=== PATIENT | male | born 1970 | race Caucasian/White ===

== ENCOUNTER 2016-06-22 09:51 | Observation (INO) | payer OTHER ==
--- NOTE | 2016-06-22 10:47 | Diag Imaging Result Document ---
PROCEDURE NAME: CHEST-2 VIEWS - 06/22/2016 CHEST X-RAY 2 VIEWS, 06/22/2016: COMPARISON: 06/07/2016. FINDINGS: There is suspicion for a small pneumothorax at the right apex measuring about 1.3 cm, about 10%. Otherwise there is significant improvement in the diffuse bilateral pulmonary vascular congestion and infiltrates. Heart size remains normal. There are trace pleural effusions. IMPRESSION: 1. Significant improvement in the pulmonary edema and vascular congestion. 2. Possible trace pneumothorax on the right. Consider a chest CT.
[2016-06-22 14:31] LABS: HEMATOCRIT 20.1 % (42.0-52.0); HEMOGLOBIN 7.3 g/dL (14.0-18.0)
[2016-06-22 14:33] LABS: PLT 6 X1000 (130-400)
[2016-06-22] MEDS ORDERED: LASIX PO PRN (14:49)
[2016-06-22] MEDS: NORCO-10 PO PRN (15:14)
[2016-06-22] MEDS: CLINIMIX E 4.25%-5% SOLUTION 1,000 ML IV SCH (15:14)
[2016-06-22] MEDS ORDERED: NS 500 ML ONE (16:09)
[2016-06-22] MEDS ORDERED: BENADRYL PO ONE (18:22)
[2016-06-22] MEDS ORDERED: TYLENOL PO ONE (18:22)
[2016-06-22] MEDS: MORPHINE IV PRN (18:39)
[2016-06-22 19:38] LABS: URINE SOURCE VOIDED
[2016-06-22 19:43] LABS: BILIRUBIN URINE 1+ (NEGATIVE); BLOOD URINE 4+ (NEGATIVE); CLARITY SL. CLOUDY (CLEAR); COLOR BROWN; GLUCOSE URINE NEGATIVE (NEGATIVE); LEUKOCYTES URINE TRACE (NEGATIVE); NITRITE URINE NEGATIVE (NEGATIVE); PH URINE 6.5; PROTEIN URINE 1+(30 mg/dL) mg/dL (NEGATIVE); UROBILINOGEN URINE NORMAL
[2016-06-22 19:53] LABS: URINE CULTURE PL NEEDED? YES; URINE EPITHELIAL CELLS <10 /HPF (<10); URINE RBC 20-40 /HPF (<10); URINE WBC <10 /HPF (<10)
[2016-06-22] MEDS ORDERED: SOLU-MEDROL IV ONE (20:17)
[2016-06-22] MEDS ORDERED: MOTRIN PO ONE (20:19)
[2016-06-22] MEDS ORDERED: NS 500 ML IV ONE (20:20)
[2016-06-22] MEDS ORDERED: TYLENOL ONE (21:03)
[2016-06-22] MEDS ORDERED: BENADRYL ONE (21:03)
[2016-06-22] MEDS: MS CONTIN PO SCH (21:21)
[2016-06-23] MEDS: MORPHINE IV PRN ×5 (00:11→18:02)
[2016-06-23 06:54] LABS: HEMATOCRIT 19.3 % (42.0-52.0); HEMOGLOBIN 6.8 g/dL (14.0-18.0); IMM GRAN# 0.01 X1000 (0.0-0.04); IMM GRAN% 0.6 % (0.0-0.5); LYMPH# 0.99 X1000 (1.2-3.4); LYMPH% 56.6 % (20.5-51.1); MANUAL DIFF NEEDED? YES; MCH 31.9 PG (27-31); MCHC 35.2 g/dL (33-37); MCV 90.6 FL (81-99); MONO# 0.64 X1000 (0.11-0.59); MONO% 36.6 % (1.7-9.3); NEUT% 6.2 % (42.2-75.2); PLT 40 X1000 (130-400); RBC 2.13 XMIL (4.7-6.1)
[2016-06-23] MEDS ORDERED: PROTONIX PO SCH (07:15)
[2016-06-23] MEDS ORDERED: TYLENOL PO ONE (07:29)
[2016-06-23] MEDS ORDERED: BENADRYL PO ONE (07:29)
[2016-06-23 07:40] LABS: BANDS 1 % (0-1); LYMPHS 57 % (21-51); MONO 26 % (1-9); NRBC 3 % (0-0)
[2016-06-23 07:41] LABS: MPV 12.9 FL (7.4-10.4)
--- NOTE | 2016-06-23 07:45 | Diag Imaging Result Document ---
PROCEDURE NAME: CHEST-2 VIEWS - 06/23/2016 CHEST X-RAY, 2 VIEWS: COMPARISON: 06/22/2016. FINDINGS: There is increase in the right basilar pleural effusion. There is slight worsening in the bibasilar infiltrates mostly in the lower lobes. Heart size remains stable. There is decrease in the tiny right pneumothorax which now measures about 1 cm. IMPRESSION: 1. Decrease in the right-sided pneumothorax. 2. Otherwise overall worsening in aeration of the lungs.
[2016-06-23] MEDS: CLINIMIX E 4.25%-5% SOLUTION 1,000 ML IV SCH (09:10)
[2016-06-23] MEDS ORDERED: GRANIX SUBQ ONE (09:15)
[2016-06-23] MEDS ORDERED: NEUPOGEN SUBQ ONE (09:30)
[2016-06-23] MEDS ORDERED: INVANZ 1 GM/NS 50 ML IV ONE (09:30)
[2016-06-23] MEDS: MS CONTIN PO SCH (09:49)
[2016-06-23] MEDS ORDERED: DIFLUCAN 200 MG/NS 100 ML IV ONE (10:50)
[2016-06-23] MEDS: NORCO-10 PO PRN (12:20)
[2016-06-23 16:16] VITALS: BP 130/80
[2016-06-25] MEDS ORDERED: DURAGESIC 25 MICROGM/HR PATCH TD SCH (15:00)
== END 2016-06-23 19:57 | disposition home or self-care (01) ==
LOC: RAD 09:51 → P.DIRADM 11:01 → P.MEDSURG 12:42 → UNDODISOB 06-23 18:35
PROVIDERS: ADMIT Internal Medicine Hematology & Oncology; ATTEND Internal Medicine Hematology & Oncology
DX: C25.9 Malignant neoplasm of pancreas, unspecified (principal); D63.0 Anemia in neoplastic disease; D69.6 Thrombocytopenia, unspecified; J93.9 Pneumothorax, unspecified; Z79.899 Other long term (current) drug therapy
CPT/HCPCS: 36415; 71020; 81001; 85014; 85018; 85025; 85049; 86850; 86900; 86901; 86920; 87040; 87088; J1335; J1447; J1450; J2270; J2920; J7040; P9016; P9035

== ENCOUNTER 2016-06-26 21:50 | Inpatient (IN) | payer OTHER ==
[2016-06-26 22:52] LABS: AGAP 10; ALBUMIN 1.8 g/dL (3.5-5.0); ALKALINE PHOSPHATASE 110 U/L (32-122); BUN 14 mg/dL (8-22); CALCIUM 8.1 mg/dL (8.8-10.2); CHLORIDE 98 mmol/L (98-107); COSMO 272; GOT 82 U/L (10-34); GPT 22 U/L (10-44); HEMATOCRIT 27.8 % (42.0-52.0); HEMOGLOBIN 9.9 g/dL (14.0-18.0); MANUAL DIFF NEEDED? YES; MCH 32.4 PG (27-31); MCHC 35.6 g/dL (33-37); MCV 90.8 FL (81-99); PLT 41 X1000 (130-400); POTASSIUM 3.6 mmol/L (3.5-5.1); RBC 3.06 XMIL (4.7-6.1); SODIUM 136 mmol/L (136-145); TCO2 28 mmol/L (25-35); TOTAL BILIRUBIN 4.03 mg/dL (0.20-1.00); TOTAL PROTEIN 6.7 g/dL (6.3-8.3)
[2016-06-26 23:02] LABS: BANDS 10 % (0-1); LYMPHS 10 % (21-51); MONO 6 % (1-9); NRBC 5 % (0-0)
--- NOTE | 2016-06-26 23:06 | PROVIDER DOCUMENTATION ---
HPI-Abdominal Pain/GI Problem - General Chief Complaint: GI Bleed Stated Complaint: rectal bleeding Time Seen by Provider: 06/26/16 22:40 Source: patient, family Allergies/Adverse Reactions: Patient Allergies Allergy/AdvReac Type Severity Reaction Status Date / Time No Known Allergies Allergy Verified 06/26/16 22:29 Home Medications: Home Medication List Medication Instructions Recorded Confirmed Last Taken Type Morphine E.r. [Ms Contin] 30 mg PO BID 03/17/16 06/26/16 06/26/16 History Fentanyl 1 each TD Q72H #8 patch.td72 06/10/16 06/26/16 06/26/16 Rx Pantoprazole [Protonix] 40 mg PO DAILY 06/22/16 06/26/16 06/26/16 History Fluconazole [Diflucan] 150 mg PO DAILY #21 tablet 07/02/16 Unknown Rx Oxycodone HCl/Acetaminophen 1 each PO Q3H PRN PRN #60 tablet 07/02/16 Unknown Rx [Percocet 7.5-325 mg Tablet] Sulfamethoxazole/Tmp D.s. [Septra 1 each PO BID #28 tablet 07/02/16 Unknown Rx Ds] - History of Present Illness-ABD Nature of Presenting Problems: Pt is a 46 yom who presents to ER via EMS with CC of hematochezia, increased diarrhea, and worsening abdominal cramping. Pt has hx of pancreatic cancer that has metastisized to his liver. Pt's mother reports that pt usually ends up like this after receiving chemotherapy, and reports that the last time he went to chemo was x3 weeks ago, and is scheduled for chemo on Tuesday. Pt reports that the last time he ate was approximately x8 days ago. On exam, pt is moderately- severely fatigued, mildly jaundice, bilateral lower extremity pitting edema, calf tenderness, and generalized abdominal tenderness on palpation. Pt reports that his plan is to continue chemotherapy for as long as he can handle it, but should something happen in the ER, he is DNR. Mother was at bedside and confirmed. Abdominal Pain Onset Location: reports: generalized abdomen Pain Radiation: reports: no radiation Quality of Pain: reports: aching Severity in ED: reports: moderate Onset/Duration: reports: unsure Timing: reports: still present Associated Symptoms: reports: diarrhea, fatigue, loss of appetite, muscle aches , nausea, weakness, trouble walking. denies: anxiety, arm pain, back/neck pain , chest pain, constipation, cough, diaphoresis, dizziness, EENT symptoms, fever/ chills, genitourinary problems, headaches, heartburn, joint pain, malaise, sinus congestion/drainage, rash, seizure, shortness of breath, sensory/motor loss, pain with inspiration, swelling/mass in abdomen, syncope, vomiting Last BM: this evening Dark Stools Present?: reports: bright red blood Rectal Bleeding: reports: blood mixed with stool Emesis Description: reports: none Review of Systems - Adult - REVIEW OF SYSTEMS - ADULT Constitutional: reports: fatique, weight loss. denies: chills, fever, night sweats, weight gain Eyes: reports: no symptoms reported Ears, Nose, Mouth & Throat: reports: no symptoms reported Cardiovascular: denies: chest pain, edema, heart murmur, irregular heart rate, orthopnea, palpitations, poor circulation, PND, syncope Respiratory: denies: chronic cough, cough, dyspnea on exertion, excessive sputum production, hemoptysis, pleurisy, shortness of breath, wheezing Gastrointestinal: reports: abdominal pain, diarrhea, nausea, poor appetite, rectal bleeding. denies: hematemesis, constipation, difficulty swallowing, frequent heartburn, vomiting Genitourinary: reports: no symptoms reported Musculoskeletal: reports: no symptoms reported Integumentary: reports: hair loss, other (jaundice). denies: hives, itching, mole changes, nail changes, rash, skin sores/ulcer, skin thickening Neurological: reports: no symptoms reported Psychiatric: reports: no symptoms reported Endocrine: reports: no symptoms reported Hematologic/Lymphatic: reports: no symptoms reported Allergic/Immunologic: reports: no symptoms reported All Other Systems: Reviewed and Negative Past History - Adult - PAST MEDICAL HISTORY-ADULT Review of Records: reports: Nursing Assessment Review, Medications Reviewed Gastrointestinal: reports: cancer (pancreatic and liver), liver disease, other ( pancreatic cancer and liver cancer) Endocrine/Immune: reports: cancer (pancreatic with mets) - IMMUNIZATION STATUS Childhood Immunizations: See Nurse Assessment Flu Vaccine: See Nurse Assessment Physical Exam-General - PHYSICAL EXAM-ADULT Initial Vital Signs Reviewed: Yes - CONSTITUTIONAL General Appearance: alert, moderate distress, cachetic, thin, lethargic, slow to respond, other (chronically ill appearance). negative: appears well, no apparent distress, mild distress, severe distress, obese, anxious, obtunded, combative - RESPIRATORY Respiratory: chest non-tender, lungs clear, normal breath sounds. negative: respiratory distress, decreased breath sounds, accessory muscle use, wheezing - CARDIOVASCULAR Cardiovascular: normal peripheral pulses, regular rate, rhythm. negative: bradycardia, tachycardia, irregularly irregular - GASTROINTESTINAL (ABDOMEN) Abdominal Exam: normal bowel sounds, soft, tenderness (generalized). negative: non tender, abnormal bowel sounds, mass - SKIN Integumentary: warm/dry, jaundice, tenderness (generalized). negative: normal color, normal turgor, abrasion(s), diaphoresis, ecchymosis, erythema, laceration (s), purpura, rash, swelling, warm - NEUROLOGIC Neurologic: grossly normal, no motor/sensory deficits. negative: facial droop, focal weakness, motor weakness, sensory deficit - PSYCHIATRIC Psych/Mental Status: normal thought content, normal thought process, oriented x 3, disheveled, depressed affect. negative: normal mood/affect, disoriented x 3 , anxious, paranoid, tearful Progress - PLAN OF CARE/RESULTS Progress/Plan/Lab Results: 2319: Hospitalist paged Vital Signs - 24 hr 06/26/16 22:20 Temperature 98.2 F Pulse Rate 66 Respiratory 18 Rate Blood Pressure 106/80 O2 Sat by Pulse 96 Oximetry Orders Category Date Time Status Saline Loc NOW Care 06/26/16 22:35 Active BLOOD CULTURE [BLDCUL] Stat Lab 06/26/16 22:15 Results CBC WITH ELECTRONIC DIFF [HEME] Stat Lab 06/26/16 22:05 Completed CMP [COMPREHENSIVE METABOLIC PANEL] [CHEM] Stat Lab 06/26/16 22:05 Completed LACTATE, PLASMA [CHEM] Stat Lab 06/26/16 22:05 Completed TYPE & SCREEN [BBK] Stat Lab 06/26/16 22:05 Received Laboratory Tests 06/26/16 06/26/16 06/26/16 22:05 22:05 22:05 WBC 33.75 H RBC 3.06 L Hgb 9.9 L Hct 27.8 L MCV 90.8 MCH 32.4 H MCHC 35.6 RDW Std Deviation 21.3 H Plt Count 41 L MPV Not Reportable Neut % (Auto) Not Reportable Lymph % (Auto) Not Reportable Tift % (Auto) Not Reportable Eos % (Auto) Not Reportable Baso % (Auto) Not Reportable Neut # (Auto) Not Reportable Lymph # (Auto) Not Reportable Tift # (Auto) Not Reportable Eos # (Auto) Not Reportable Baso # (Auto) Not Reportable Segmented Neutrophils 70 Band Neutrophils 10 H Lymphocytes 10 L Monocytes 6 Metamyelocytes 4.0 Nucleated RBCs 5 H Pathologist Review Poikilocytosis OCCASIONAL Sodium 136 Potassium 3.6 Chloride 98 Carbon Dioxide 28 Anion Gap 10 BUN 14 Creatinine 0.5 L Estimated GFR/1.73 m2 > 60 BUN/Creatinine Ratio 28 Glucose 88 Calculated Osmolality 272 Calcium 8.1 L Total Bilirubin 4.03 H AST 82 H ALT 22 Alkaline Phosphatase 110 Total Protein 6.7 Albumin 1.8 L Globulin 4.9 Albumin/Globulin Ratio 0.4 Plasma Lactate 2.1 - CONSULTS/PCP/HOSPITALIST Notification #1 *Consult/PCP/Hospitalist*: Dr. Shields (Hospitalist) Time Discussed: 23:22 Consult Disposition: Admit Departure - Departure Time of Disposition Order: 23:19 DIAGNOSIS: Pancreatic cancer Qualifiers: Pancreatic malignancy location: unspecified Qualified Code(s): C25.9 - Malignant neoplasm of pancreas, unspecified Disposition: ADMITTED INPATIENT 09 Certified Medical Emergency: Emergent Condition: Stable Attestation - Scribe Verification/Attestation Scribe:: Dedrick Cummings Acting as Scribe for:: Maximino Bales Scribe documention review:: This chart was documented by a scribe and accurately reflects the service the provider performed and the decisions made by the provider.
[2016-06-27] MEDS ORDERED: DILAUDID IV ONE (01:42)
[2016-06-27] MEDS ORDERED: NS 1,000 ML IV SCH (03:21)
[2016-06-27] MEDS: NORCO-10 PO PRN ×2 (03:45→09:24)
--- NOTE | 2016-06-27 03:57 | HISTORY AND PHYSICAL ---
CHIEF COMPLAINT: Bloody stools. HISTORY OF PRESENTING ILLNESS: A 46-year-old male with a history of pancreatic cancer who had presented to the emergency department complaining of having some bloody stools. The patient was just discharged a few days ago from the hospital. The patient says that when he got home, he noticed some bloody stools. He was evaluated in the ER and due to his presenting symptoms, it was thought that he would need hospitalization for further management. At the time of my examination, he had denied any headache, fever, chills, chest pain, or shortness of breath. PAST MEDICAL HISTORY: Includes pancreatic cancer. PAST SURGICAL HISTORY: None. ALLERGIES: No known drug allergies. CURRENT MEDICATIONS: As listed in the MAR. SOCIAL HISTORY: He has been smoking for the past year or so. History of alcohol use. History of marijuana use. FAMILY HISTORY: No history of coronary artery disease. REVIEW OF SYSTEMS: Twelve point review of systems listed as in HPI. Other systems negative. PHYSICAL EXAMINATION: GENERAL: Ill-looking patient who appears older than stated age. VITAL SIGNS: Temperature 98.2 degrees, pulse 66, respirations 18, blood pressure 106/80, he is saturating 96%. HEENT: Atraumatic, normocephalic. Extraocular movements intact. PERRLA. NECK: No masses. CHEST: Clear to auscultation. CARDIOVASCULAR: Regular rate and rhythm. ABDOMEN: Soft. Positive bowel sounds. EXTREMITIES: No edema. NEUROLOGIC: He is awake, alert, oriented x2. : No bladder distention. SKIN: Warm. LABORATORIES AND STUDIES: Sodium 136, potassium 3.6, chloride 98, CO2 is 28, BUN is 14, creatinine is 0.5, glucose is 88. WBCs 33.75, hemoglobin 9.9, hematocrit 27.8, platelets are 41,000. ASSESSMENT: A 46-year-old male with a history of pancreatic cancer who had presented to the emergency room with the complaint of bloody stools. The patient will need hospitalization for further management. 1. Bloody stools. 2. Pancreatic cancer. PLAN: 1. We will admit patient to medical floor. 2. We will keep patient NPO. 3. We will consult gastroenterology. 4. We will consult his oncologist. 5. Continue with supportive treatment, IV fluids, antiemetics, and we will be give him pain control if needed. 6. We will continue to follow and reassess.
[2016-06-27] MEDS ORDERED: LEVAQUIN PO SCH (09:00)
[2016-06-27] MEDS ORDERED: PROTONIX PO SCH (09:00)
[2016-06-27] MEDS: DURAGESIC 25 MICROGM/HR PATCH TD SCH (09:24)
[2016-06-27] MEDS ORDERED: SODIUM CHLORIDE 0.9% INJ SCH (09:45)
[2016-06-27] MEDS: NS 1,000 ML IV SCH ×2 (09:59→16:29)
[2016-06-27] MEDS: DILAUDID IV PRN ×4 (09:59→22:17)
[2016-06-27] MEDS: PROTONIX IV SCH (10:00)
[2016-06-27] MEDS: CLINIMIX E 4.25%-5% SOLUTION 1,000 ML IV SCH (13:12)
[2016-06-27] MEDS ORDERED: VANCOMYCIN IV PER PHARMACY MISC SCH (14:00)
[2016-06-27] MEDS: FLUCONAZOLE IV SCH (14:05)
[2016-06-27] MEDS: SODIUM CHLORIDE IV SCH (14:05)
[2016-06-27] MEDS: VANCOMYCIN 1.5 GM in NS 250 ML IV SCH (16:25)
[2016-06-28] MEDS: NS 1,000 ML IV SCH (01:19)
[2016-06-28] MEDS: CLINIMIX E 4.25%-5% SOLUTION 1,000 ML IV SCH ×2 (01:20→10:59)
[2016-06-28] MEDS: DILAUDID IV PRN ×6 (01:20→18:16)
[2016-06-28] MEDS ORDERED: MBX SOLUTION MT PRN (01:45)
[2016-06-28] MEDS ORDERED: VITAMIN K SUBQ ONE (05:32)
[2016-06-28 06:30] LABS: AGAP 10; BUN 18 mg/dL (8-22); CALCIUM 7.6 mg/dL (8.8-10.2); CHLORIDE 102 mmol/L (98-107); COSMO 276; POTASSIUM 4.1 mmol/L (3.5-5.1); SODIUM 136 mmol/L (136-145); TCO2 24 mmol/L (25-35)
[2016-06-28 06:45] LABS: INR 2.25; PROTIME 24.1 Seconds (9.2-11.7); PTT 41.6 Seconds (22.0-36.0)
[2016-06-28 06:48] LABS: HEMATOCRIT 25.1 % (42.0-52.0); HEMOGLOBIN 8.8 g/dL (14.0-18.0); MANUAL DIFF NEEDED? YES; MCH 32.6 PG (27-31); MCHC 35.1 g/dL (33-37)
[2016-06-28 06:50] LABS: PLT 33 X1000 (130-400)
[2016-06-28 06:52] LABS: BANDS 4 % (0-1); LYMPHS 6 % (21-51); MONO 6 % (1-9); NRBC 7 % (0-0); POLYCHROM OCCASIONAL
[2016-06-28] MEDS: VANCOMYCIN 1.5 GM in NS 250 ML IV SCH (10:59)
[2016-06-28] MEDS: PROTONIX IV SCH (10:59)
[2016-06-28] MEDS: FLUCONAZOLE IV SCH (13:16)
[2016-06-28] MEDS: SODIUM CHLORIDE IV SCH (13:16)
[2016-06-28] MEDS ORDERED: NS 500 ML ONE (15:22)
[2016-06-28] MEDS ORDERED: BLISTEX MEDICATED BERRY LIP BALM TOP PRN (15:32)
--- NOTE | 2016-06-28 16:59 | PROGRESS NOTE ---
DATE: 06/28/2016 SUBJECTIVE: Patient reports feeling fine. Reporting pain is well controlled. Denies any other complaints. OBJECTIVE: Vital Signs: Temperature 98.3 degrees, heart rate 79, respiratory rate 22, blood pressure 114/71. O2 saturation 95% on 2 L nasal cannula. General Examination: This is a chronically ill-looking, very frail looking older than his age, 46-year-old male, lying in bed, in no acute distress. HEENT: Head is normocephalic, atraumatic. Anicteric sclerae and pale conjunctivae. Mucous membranes dry. There is mucositis all over the mouth with some reddening of the throat but no signs of candidiasis. Neck: Supple. No JVD noted. No carotid bruits. No lymphadenopathy. No thyromegaly. Cardiovascular: S1, S2 heard. Tachycardic. No murmurs, gallops, or rubs. Regular rate and rhythm. Respiratory: Clear bilaterally to auscultation. No work of breathing or using accessory muscles. Abdomen: Soft, nontender to palpation. Bowel sounds present. No organomegaly. Extremities: No clubbing, cyanosis, or edema. Peripheral pulses present in both legs. Neurological: Patient moves all 4 extremities and is awake. LABORATORY DATA: White cell count 22.31, hemoglobin 8.8, hematocrit 25.1, platelets 33,000. BMP unremarkable. ASSESSMENT AND PLAN: 1. Advanced pancreatic cancer. 2. Blood in the stools. PLAN: 1. The patient has been admitted to the hospital because of episodes of blood in the stools. The family reports that this happens when the patient has chemotherapy. At this point, patient has been evaluated by his primary oncologist, Dr. Krishnamurthy and they think that this patient is not a good candidate for any active treatment for this pancreatic cancer. 2. At this point, we have consulted palliative care and we will consult hospice to establish goals of urine. For now, we will continue monitoring this patient in the hospital. 3. Patient as we mentioned before, is code status DNR level 1.
[2016-06-29] MEDS: CLINIMIX E 4.25%-5% SOLUTION 1,000 ML IV SCH ×3 (00:04→17:03)
[2016-06-29] MEDS: DILAUDID IV PRN ×6 (02:24→20:26)
--- NOTE | 2016-06-29 03:48 | CONSULTATION ---
DATE OF CONSULTATION: 06/28/2016 REFERRING PHYSICIAN: Ralph Corbett MD PRIMARY ONCOLOGIST: Roe Krishnamurthy MD REASON FOR CONSULTATION: 1. Rectal bleeding. 2. Melena. HISTORY OF PRESENT ILLNESS: The patient is a 46-year-old white male who is well known to our service for metastatic pancreatic cancer with diffuse liver involvement. He presented to the hospital after a course of chemotherapy with severe thrombocytopenia. The thrombocytopenia has been associated with epistaxis, rectal bleeding, and melena. We are asked to evaluate and assist in his care. However, the patient states that he does not want an exam right now and he does not want any more invasive procedures because they do not seem to be working. According to Dr. Raya, the patient is strongly considering hospice care. Therefore, we will defer for consultation until such time that the patient has made a decision about his treatment. He did ask me to stop back in the next day or 2 in case he changes his mind. At this time, I have no specific recommendations other than to correct his thrombocytopenia and treat those things that he will allow us to treat. I will reassess the patient on a daily basis. Additional recommendations will be based on his hospital course, and on the patient's preference.
[2016-06-29] MEDS: NORCO-10 PO PRN (05:01)
[2016-06-29] MEDS: VANCOMYCIN 1.5 GM in NS 250 ML IV SCH ×2 (05:03→22:58)
[2016-06-29] MEDS: PROTONIX IV SCH (09:56)
[2016-06-29 10:08] LABS: AGAP 8; BUN 15 mg/dL (8-22); CALCIUM 7.6 mg/dL (8.8-10.2); CHLORIDE 102 mmol/L (98-107); COSMO 277; POTASSIUM 3.6 mmol/L (3.5-5.1); SODIUM 138 mmol/L (136-145); TCO2 28 mmol/L (25-35)
[2016-06-29 10:42] LABS: BASO% 0.8 % (0.0-0.8); HEMATOCRIT 22.4 % (42.0-52.0); HEMOGLOBIN 7.6 g/dL (14.0-18.0); IMM GRAN# 0.81 X1000 (0.0-0.04); IMM GRAN% 4.4 % (0.0-0.5); LYMPH# 6.42 X1000 (1.2-3.4); LYMPH% 34.8 % (20.5-51.1); MANUAL DIFF NEEDED? NO; MCH 31.8 PG (27-31); MCHC 33.9 g/dL (33-37); MCV 93.7 FL (81-99); MONO# 2.21 X1000 (0.11-0.59); MPV 12.6 FL (7.4-10.4); PLT 79 X1000 (130-400); RBC 2.39 XMIL (4.7-6.1)
[2016-06-29] MEDS: SODIUM CHLORIDE IV SCH (12:13)
[2016-06-29] MEDS: FLUCONAZOLE IV SCH (12:13)
--- NOTE | 2016-06-29 12:30 | CONSULTATION ---
DATE OF CONSULTATION: 06/28/2016 ADMITTING PHYSICIAN: Dr. Rolando Shields. REQUESTING PHYSICIAN: Dr. Rolando Shields. We appreciate this consult. CHIEF COMPLAINT: Hematochezia. HISTORY OF PRESENT ILLNESS: Mr. Donato is a 46-year-old male well known to us with a history of pancreatic cancer with diffuse liver involvement who has been on Abraxane and Gemzar. He is status post cycle 4 dose 1 on 06/15/2016. He has had no treatment since that time secondary to acute illnesses. The patient presented to the [facility] Emergency Department secondary to a recurrence of hematochezia. The patient was actually discharged from the hospital just a couple days ago. The patient reports that when he got home, he began to notice bloody stools. He has been managed in clinic secondary to fevers and chills. The patient has been on Invanz 1 g daily on 06/24/2016 and 06/25/2016, with a prescription for Levaquin 500 mg daily thereafter. Presently, the patient is lying supine in bed, significantly weakened, cachectic, and complaining of abdominal pain. PAST MEDICAL HISTORY: Pancreatic cancer with diffuse liver involvement. PAST SURGICAL HISTORY: None. SOCIAL HISTORY: The patient has a history of alcohol abuse, marijuana use, and smokes daily. FAMILY HISTORY: Family history is significant for malignant melanoma in the patient's sister. MEDICATIONS ON ADMISSION: 1. Pantoprazole. 2. Dexamethasone. 3. Morphine ER. 4. Granger 10/325. 5. MS Contin ER 15 mg. ALLERGIES: The patient has no known drug allergies. REVIEW OF SYSTEMS: A 14-point review of systems was obtained and is negative except as mentioned in the HPI. PHYSICAL EXAMINATION: Mr. Donato is a 46-year-old male lying supine in bed in considerable pain, but in no immediate distress.Vital Signs: Temperature 98.8 degrees, blood pressure 124/76, heart rate 81, respirations 20, and O2 saturation is 93% on 2L nasal cannula O2. HEENT: Normocephalic, atraumatic. Mucous membranes are pale and dry. Sclerae are icteric. Extraocular movements intact. Neck: Supple. Lungs: Coarse breath sounds in the bases. Cardiovascular: S1 and S2 heard, without murmur, rub, or gallop. Abdomen: Soft, nondistended. Tender diffusely. Bowel sounds are decreased throughout. Extremities: Without clubbing or cyanosis. He does have 1+ bilateral lower extremity edema. Dermatologic: No rashes, bruises, or lesions. Neurologic: The patient is slow to respond, but is oriented x3 and has no focal deficit at this time. LABORATORY DATA: Hemoglobin 8.8, hematocrit 25.1, white blood cell count is 22.31, platelets 33,000. ANC is not reportable. PT is 24.1. INR is 2.25. PTT 41.6. Sodium 136, potassium 4.1, chloride 102, CO2 is 24, BUN 18, creatinine 0.5, glucose 130, and calcium is 7.6. ASSESSMENT AND PLAN: 1. Gastrointestinal bleed status post transfusion of 2 units packed red blood cells as well as [address] Rocha has been consulted at this time. Hemoglobin is currently 8.8. 2. Pancreatic cancer with diffuse liver involvement status post 4-1 Abraxane and Gemzar on 06/15/2016. The patient will have no treatment until acute illness passes. 3. Recent fever and leukocytosis status post Invanz 1 g on 06/24/2016 and 06/25/2016, with a prescription for 500 mg p.o. Levaquin daily. The patient is currently afebrile at this time. 4. Pancytopenia status post packed red blood cells x2 and platelets x1. We will add 1 additional unit of platelets at this time. We will continue to follow CBC closely. 5. We will follow along with you and make further recommendations pending outcomes. The above reflects the history, examination, assessment, and plan of Dr. Krishnamurthy. Dictated by MARYCARMEN Abad for Roe Krishnamurthy MD
--- NOTE | 2016-06-29 12:48 | PROGRESS NOTE ---
DATE: 06/29/2016 SUBJECTIVE: The patient reports that he has talked with his primary oncologist and they decided together to try 1 more chemo cycle. OBJECTIVE: Vital Signs: Temperature 98.4 degrees, heart rate 65, respiratory rate 19, blood pressure 118/63, O2 saturation 90% on 2 L nasal cannula. General: This is a chronically ill- looking, very frail, and also looking older than his age, 46-year-old male, lying in bed, in no acute distress. HEENT: Head is normocephalic, atraumatic. Anicteric sclerae. Pale conjunctivae. Mucous membranes dry with mucositis all over the mouth with some reddening of the throat but no signs of candidiasis. Neck: Supple. No JVD noted. No carotid bruits. No lymphadenopathy. No thyromegaly. Cardiovascular: S1, S2 heard. Tachycardic. No murmurs, gallops, or rubs. Respiratory: Clear bilaterally to auscultation. No work of breathing or using accessory muscles. Abdomen: Soft, nontender to palpation. Bowel sounds present. No organomegaly. Extremities: No clubbing, cyanosis, or edema. Peripheral pulses present in both legs. Neurological: Patient moves 4 extremities. Alert and oriented x3. LABORATORY DATA: White cell count 18.45, hemoglobin 7.6, hematocrit 22.4, platelets 79,000. BMP unremarkable. ASSESSMENT AND PLAN: 1. Advanced pancreatic cancer. 2. Blood in the stools. 3. Pancytopenia secondary to condition 1. PLAN: patient has been admitted to the hospital for blood in the stools. He has refused GI evaluation. Although initially he thought about going to hospice, he prefers now to proceed with 1 more cycle of chemotherapy. We will definitely honor his wishes. We are going to contact Dr. Krishnamurthy to see if he plans to start hemodialysis while he is in the hospital or if he is planning to do it as an outpatient. As soon as we know that we will be able to either discharge this patient or just keep him here until he finishes treatment.
--- NOTE | 2016-06-29 14:26 | PALLIATIVE CARE CONSULTATION ---
DATE: 06/29/2016 REQUESTING PHYSICIAN: MARYCARMEN Yee. REASON FOR CONSULTATION: Goals of care. HISTORY OF PRESENT ILLNESS: This is a 46-year-old male with a past medical history of pancreatic cancer with diffuse liver involvement. He was most recently admitted on 06/27/2016, after presenting to the emergency department with complaints of recurrent hematochezia. His last chemotherapy treatment took place on 06/15/2016. It is reported that he has not had any treatment since, due to acute illnesses. Currently, Mr. Donato is sitting on the bedside. He denies any acute complaints. His mother is also at the bedside. The palliative care team has been consulted to assist with goals of care. REVIEW OF SYSTEMS: Twelve-point review of system has been conducted and is otherwise negative except those mentioned in the HPI. PAST MEDICAL HISTORY: See HPI. PAST SURGICAL HISTORY: None. SOCIAL HISTORY: Per chart review, this patient has a history of alcohol abuse, marijuana use, and is a daily smoker. FAMILY HISTORY: Positive for malignant melanoma in Mr. Donato' sister. PHYSICAL EXAMINATION: General: This is a 46-year-old, chronically ill-appearing, cachectic male who is sitting at the bedside. He does not appear to be in any acute distress. HEENT: Atraumatic, normocephalic. Sclerae are icteric. Neck: Trachea is midline. Cardiovascular: Normal S1 and S2. Pulmonary: Lung sounds are diminished. Respirations are nonlabored. Abdomen: Soft. Extremities: Pulses are palpable. ASSESSMENT AND PLAN: This is a 46-year-old male with a past medical history as listed above. I met with Mr. Donato and his mother to discuss goals of care. Mr. Donato states that he wants to undergo 1 more cycle of chemotherapy under the direction of Dr. Krishnamurthy. He is a DNR level 1. The patient's mother had questions regarding hospice services. Those questions were answered. As previously mentioned, Mr. Donato does not have any acute complaints at this time. The palliative care team will continue to follow. Thank you for this consultation. Dictated by MARYCARMEN Wells for Cornelius Da Silva MD
[2016-06-29] MEDS ORDERED: NS 500 ML ONE (14:34)
[2016-06-30] MEDS: DILAUDID IV PRN ×4 (00:07→07:36)
[2016-06-30] MEDS: CLINIMIX E 4.25%-5% SOLUTION 1,000 ML IV SCH ×2 (03:51→14:18)
[2016-06-30 08:12] LABS: BASO% 0.5 % (0.0-0.8); HEMATOCRIT 28.1 % (42.0-52.0); HEMOGLOBIN 9.6 g/dL (14.0-18.0); IMM GRAN# 0.27 X1000 (0.0-0.04); IMM GRAN% 1.9 % (0.0-0.5); LYMPH# 3.36 X1000 (1.2-3.4); LYMPH% 23.2 % (20.5-51.1); MANUAL DIFF NEEDED? YES; MCH 31.6 PG (27-31); MCHC 34.2 g/dL (33-37); MCV 92.4 FL (81-99); MONO# 1.83 X1000 (0.11-0.59); MONO% 12.6 % (1.7-9.3); NEUT% 61.8 % (42.2-75.2); PLT 64 X1000 (130-400); RBC 3.04 XMIL (4.7-6.1)
[2016-06-30] MEDS: DURAGESIC 25 MICROGM/HR PATCH TD SCH (08:12)
[2016-06-30] MEDS: PROTONIX IV SCH ×2 (08:12→10:16)
[2016-06-30 08:24] LABS: BANDS 3 % (0-1); LYMPHS 14 % (21-51); MONO 8 % (1-9); NRBC 4 % (0-0)
[2016-06-30 08:25] LABS: TARGET CELLS 1+
[2016-06-30 08:26] LABS: LARGE PLATELETS 1+
[2016-06-30] MEDS ORDERED: ZOFRAN IV PRN (08:29)
[2016-06-30] MEDS ORDERED: PHENERGAN IV PRN (08:29)
[2016-06-30] MEDS ORDERED: NARCAN IV PRN (08:29)
[2016-06-30] MEDS ORDERED: SODIUM CHLORIDE 0.9% INJ PRN (08:29)
[2016-06-30] MEDS ORDERED: BENADRYL IV PRN (08:29)
[2016-06-30] MEDS: DILAUDID PCA VIAL IV PRN (09:01)
[2016-06-30] MEDS: LR 1,000 ML IV SCH (09:11)
--- NOTE | 2016-06-30 11:06 | PALLIATIVE CARE PROGRESS NOTE ---
DATE: 06/30/2016 SUBJECTIVE: Mr. Donato is lying in the hospital bed. He does not have any acute complaints or concerns. OBJECTIVE: General: This is a chronically ill-appearing, cachectic, 46-year-old, male who does not appear to be in any acute distress. HEENT: Atraumatic and normocephalic. Neck: Supple. Cardiovascular: Regular rate and rhythm. Pulmonary: Lung sounds are diminished. Respirations are nonlabored. Abdomen: Soft. Extremities: Pulses are palpable. ASSESSMENT/PLAN: Currently, Mr. Donato denies pain, nausea, anxiety, depression, or shortness of breath. His mother is at the bedside. Mr. Donato nor his mother have any questions regarding his care. Mr. Donato is a [id number] level 1. The palliative care team will continue to follow. Dictated by MARYCARMEN Wells for Cornelius Da Silva MD
[2016-06-30] MEDS: VANCOMYCIN 1.5 GM in NS 250 ML IV SCH ×2 (11:36→23:25)
--- NOTE | 2016-06-30 12:43 | PROGRESS NOTE ---
DATE: 06/30/2016 SUBJECTIVE: Patient is feeling fine now after we started him on PER DIEM CLERK pump with Dilaudid. OBJECTIVE: Vital Signs: Temperature 97.9 degrees, heart rate 64, respiratory rate 18, blood pressure 130/77, O2 saturation 94% on room air. General Examination: This is a chronically ill- looking, very frail, and also looking older than his age, 46-year-old male, lying in bed, in no acute distress. HEENT: Head is normocephalic, atraumatic. Anicteric sclerae. Pale conjunctivae. Mucous membranes moist. Neck: Supple. No JVD noted. No carotid bruits. No lymphadenopathy. No thyromegaly. Cardiovascular: S1 and S2 heard. No murmurs, gallops, or rubs. Regular rate and rhythm. Respiratory: Clear bilaterally to auscultation. No work of breathing or using accessory muscles. Abdomen: Soft. Nontender to palpation. Bowel sounds present. No organomegaly. Extremities: No clubbing, cyanosis, or edema. Peripheral pulses present in both legs. Neurological: Patient moves 4 extremities. Alert and oriented x3. LABORATORY DATA: White cell count 14.50, hemoglobin 9.6, hematocrit 28.1, platelets 64,000. There is no BMP from today. ASSESSMENT: 1. Advanced pancreatic cancer with metastases to the liver. 2. Generalized mucositis. 3. Pancytopenia secondary to condition #1. PLAN: The patient right now is doing fine. He was hurting in the stomach so we decided to start a PER DIEM CLERK pump on him with Dilaudid and he is doing fine. We have talked with the patient and his oncologist and he decided to go for 1 more cycle of chemotherapy. At this point, as per hematology/oncology they prefer to keep him 1 more day in the hospital. If numbers are much better tomorrow patient can be discharged home with home health and they will see the patient in the office next week.
[2016-06-30] MEDS: SODIUM CHLORIDE IV SCH (14:18)
[2016-06-30] MEDS: FLUCONAZOLE IV SCH (14:18)
[2016-07-01] MEDS: CLINIMIX E 4.25%-5% SOLUTION 1,000 ML IV SCH ×5 (01:14→22:30)
[2016-07-01 07:21] LABS: BASO% 0.5 % (0.0-0.8); HEMATOCRIT 27.8 % (42.0-52.0); HEMOGLOBIN 9.6 g/dL (14.0-18.0); IMM GRAN# 0.11 X1000 (0.0-0.04); IMM GRAN% 0.8 % (0.0-0.5); LYMPH% 22.5 % (20.5-51.1); MANUAL DIFF NEEDED? YES; MCH 32.1 PG (27-31); MCHC 34.5 g/dL (33-37); MONO# 1.81 X1000 (0.11-0.59); MONO% 13.6 % (1.7-9.3); NEUT% 62.6 % (42.2-75.2); PLT 68 X1000 (130-400); RBC 2.99 XMIL (4.7-6.1)
[2016-07-01 08:03] LABS: LYMPHS 12 % (21-51); MONO 5 % (1-9); NRBC 5 % (0-0)
[2016-07-01 08:04] LABS: TARGET CELLS OCCASIONAL
[2016-07-01] MEDS: PROTONIX IV SCH (09:05)
[2016-07-01] MEDS: DILAUDID PCA VIAL IV PRN (09:19)
[2016-07-01] MEDS: LR 1,000 ML IV SCH (10:46)
[2016-07-01] MEDS: VANCOMYCIN 1.5 GM in NS 250 ML IV SCH ×2 (10:46→22:23)
--- NOTE | 2016-07-01 11:33 | PROGRESS NOTE ---
DATE: 07/01/2016 SUBJECTIVE: Patient is feeling fine. Denies any fever or chills. He is not hurting anywhere after we started him on a LOAN AND CREDIT MANAGER pump with Dilaudid. OBJECTIVE: Vital Signs: Temperature 98.9 degrees, heart rate 63, respiratory rate 20, blood pressure 103/64, and O2 saturation 94% on room air. General: This is a chronically ill-looking, very frail, and also looking older than his age, 46-year-old male, lying in bed in no acute distress. HEENT: Head is normocephalic, atraumatic. Anicteric sclerae and pale conjunctivae. Mucous membranes moist. Neck: Supple. No JVD noted. No carotid bruits. No lymphadenopathy. No thyromegaly. Cardiovascular: S1 and S2 heard. No murmurs, gallops, or rubs. Regular rate and rhythm. Respiratory: Clear bilaterally to auscultation. No work of breathing or using accessory muscles. Abdomen: Soft, nontender to palpation. Bowel sounds present. No organomegaly. Extremities: No clubbing, cyanosis, or edema. Peripheral pulses present in both legs. Neurological: Patient moves all 4 extremities. Alert and oriented x3. LABORATORY DATA: White cell count 13.31, hemoglobin 9.6, hematocrit 37.8, platelets 68,000. BMP not available today. ASSESSMENT: 1. Advanced pancreatic cancer with metastases to the liver. 2. Generalized mucositis. 3. Pancytopenia secondary to condition #1. 4. Methicillin-resistant Staphylococcus aureus bacteremia. PLAN: 1. The patient reports feeling fine, no pain since he is on LOAN AND CREDIT MANAGER pump. 2. Regarding disposition, patient is fine from the Hematology/Oncology standpoint to go home and then they are going to contact him regarding a new cycle of chemotherapy. 3. Regarding the methicillin-resistant Staphylococcus aureus pneumonia, patient is on vancomycin was white cell count is fine, so we are going to consult Dr. Reddy to help us determine how long this patient will need IV antibiotics. 4. For pancytopenia, hemoglobin, platelet count, and white cell count are better. 5. After patient is cleared by ID, will discharge this patient home with home health.
[2016-07-01] MEDS: SODIUM CHLORIDE IV SCH (12:43)
[2016-07-01] MEDS: FLUCONAZOLE IV SCH (12:43)
--- NOTE | 2016-07-01 15:29 | PALLIATIVE CARE PROGRESS NOTE ---
DATE: 07/01/2016 PALLIATIVE CARE PROGRESS NOTE: SUBJECTIVE: Mr. Donato does not have any acute complaints. He denies pain, nausea, or shortness of breath. OBJECTIVE: General: This is a chronically ill-appearing, 46-year-old male, who does not appear to be in any acute distress. HEENT: Atraumatic, normocephalic. Neck supple. Cardiovascular: Regular rate and rhythm. Pulmonary: Lung sounds are diminished. Respirations are nonlabored. Abdomen: Soft. Bowel sounds are active. Extremities: Pulses are palpable. ASSESSMENT AND PLAN: The patient and his mother, who is at the bedside, state that the plan is to discharge home with home health. As previously mentioned, Mr. Donato does not have any acute complaints. He states that the DIRECTOR OF ENROLLMENT pump is managing his pain well. The palliative care team will continue to follow. Dictated by MARYCARMEN Wells for Cornelius Da Silva MD
--- NOTE | 2016-07-01 16:39 | PROGRESS NOTE ---
DATE: 07/01/2016 PRESENT ILLNESS: The patient has a methicillin-resistant Staph aureus bacteremia. I am uncertain as to where the origin of the bacteremia is although I think most likely it has something to do with the fact that patient has pancreatic cancer which is metastatic and I believe that some structure has been closed off and cannot drain and therefore the patient became bacteremic from that. MEDICATIONS: The patient is receiving vancomycin and fluconazole. PHYSICAL EXAMINATION: Vital Signs: Temperature is 98.9 degrees, pulse 63, respirations 20. Blood pressure 103/64. General: This is a chronically ill-appearing, middle-aged male. He is in no acute distress. Lungs: Clear to auscultation. Cardiovascular: Regular heart rate. Abdomen: Soft and not tender. Neurologic: The patient is somewhat lethargic. When he is awake he is coherent. He followed requests to move his extremities. LAB AND X-RAY STUDIES: Blood cultures are growing methicillin-resistant Staph aureus. Creatinine 0.4. GFR is greater than 60. [place] [address], hemoglobin 9.6, and platelet count 68,000. ASSESSMENT AND PLAN: The patient has methicillin-resistant Staph aureus bacteremia. I believe there are a number of ways we could handle his infection. One way would be to continue his IV antibiotics at home and I would suggest continuing vancomycin for a total of 2 more weeks of treatment. If the patient would be more interested in not having anything intravenous then one could either treat the patient with an oral antibiotic such as Septra DS 1 p.o. every 12 hours for 14 days and finally if the patient is going to be going home on comfort measures only then I would suggest not treating the bacteremia anymore. COMORBIDITY: The patient's comorbidity is that unfortunately he has far advanced pancreatic cancer that is metastatic to the liver.
[2016-07-02 07:17] LABS: BASO% 0.4 % (0.0-0.8); EOS# 0.01 X1000 (0.0-0.7); EOS% 0.1 % (0.0-10.0); HEMATOCRIT 28.3 % (42.0-52.0); HEMOGLOBIN 9.4 g/dL (14.0-18.0); IMM GRAN# 0.06 X1000 (0.0-0.04); IMM GRAN% 0.4 % (0.0-0.5); LYMPH# 3.13 X1000 (1.2-3.4); LYMPH% 23.4 % (20.5-51.1); MANUAL DIFF NEEDED? YES; MCH 31.2 PG (27-31); MCHC 33.2 g/dL (33-37); MONO# 1.77 X1000 (0.11-0.59); MONO% 13.3 % (1.7-9.3); NEUT% 62.4 % (42.2-75.2); PLT 76 X1000 (130-400); RBC 3.01 XMIL (4.7-6.1)
[2016-07-02 07:53] LABS: LYMPHS 17 % (21-51); MONO 12 % (1-9)
[2016-07-02 07:54] LABS: TARGET CELLS OCCASIONAL
[2016-07-02] MEDS: PROTONIX IV SCH (09:03)
[2016-07-02] MEDS: DILAUDID PCA VIAL IV PRN (09:09)
[2016-07-02] MEDS: VANCOMYCIN 1.5 GM in NS 250 ML IV SCH (10:50)
[2016-07-02] MEDS: SODIUM CHLORIDE IV SCH (13:47)
[2016-07-02] MEDS: FLUCONAZOLE IV SCH (13:47)
[2016-07-02 14:12] VITALS: BP 135/65
--- NOTE | 2016-07-02 14:30 | PALLIATIVE CARE PROGRESS NOTE ---
DATE: 07/02/2016 PALLIATIVE CARE PROGRESS NOTE SUBJECTIVE: Mr. Donato is resting during my visit. He awakens easily and does not have any acute complaints. OBJECTIVE: General: This is a chronically ill-appearing 46-year-old male who does not appear to be in any acute distress. HEENT: Atraumatic, normocephalic. Neck: Trachea is midline. Cardiovascular: Regular rate and rhythm. Pulmonary: Lung sounds are diminished. Respirations are nonlabored. Abdomen: Soft. Bowel sounds are active. Extremities: Pulses are palpable. ASSESSMENT AND PLAN: Mr. Donato states that he is being discharged today. He is still receiving pain management via his FINANCE LECTURER and states that it is effective. Mr. Donato is being discharged with home health and following up with Dr. Krishnamurthy for one more cycle of chemotherapy. Once again, Mr. Donato does not have any acute complaints. The palliative care team will continue to follow as needed. Dictated by MARYCARMEN Wells for Cornelius Da Silva MD
--- NOTE | 2016-07-02 20:39 | DISCHARGE SUMMARY ---
ADMISSION DATE: 06/27/2016 DISCHARGE DATE: 07/02/2016 CONSULTATIONS: 1. Kalyani Rocha M.D., Gastroenterology. 2. Roe Krishnamurthy M.D., Oncology. 3. MARYCARMEN Wells, Palliative Care Services. DISCHARGE DIAGNOSES: 1. Advanced pancreatic cancer with metastasis to the liver being followed by Dr. Krishnamurthy. Palliative care discussed at length with goals of care. Their plan is to discharge home with home health. Mr. Donato states that he wants to undergo one more cycle of chemotherapy under the direction of Dr. Krishnamurthy. Patient was a DNR level 1. 2. Generalized mucositis. 3. Pancytopenia secondary to #1. 4. Methicillin-resistant Staphylococcus aureus bacteremia followed by Infectious Disease. The patient was receiving IV vancomycin and Diflucan. The patient to go home on p.o. Diflucan as well as Septra DS. 5. Chronic pain secondary to #1. Patient will continue on MS Contin and fentanyl patches as well as Percocet. HOSPITAL COURSE: Briefly, Mr. Donato is a very unfortunate 46-year-old male who carries a history of metastatic pancreatic cancer. He presented to the emergency department having bloody stools. The patient had previously been discharged from the hospital. He did state when he got home he noted some bloody stools. He did present to the hospital after a course of chemotherapy with severe thrombocytopenia also associated with epistaxis, rectal bleeding and melena. We did ask GI to assist in his care, however, he did not want an examination at the present time. He did not want any invasive procedures. Patient did speak with palliative care. He was strongly considering hospice. The patient did receive some packed red blood cells as well as platelets. Dr. Krishnamurthy also spoke with the patient and under Dr. Krishnamurthy's direction the patient would like to undergo 1 more cycle of chemotherapy. He was a DNR level 1 while in the hospital. Hospice also spoke with the mother. They answered all her questions regarding hospice services. He was continued to be followed by Palliative Care. Mr. Donato has decided to be discharged home with home health and again received 1 round of chemotherapy. Per his MRSA bacteremia, he was started on IV Diflucan as well as IV vancomycin. He will be going home on PO Diflucan as well as Septra DS. VITAL SIGNS AT TIME OF DISCHARGE: Temperature 98.2 degrees, heart rate 64, respirations 20, blood pressure 126/79, O2 is 97% on room air. DISCHARGE DIET: GI soft. DISCHARGE MEDICATIONS: 1. Protonix 40 mg p.o. daily. 2. MS Contin 30 mg p.o. b.i.d. 3. Percocet 7.5/325,1 each p.o. q.3 hours p.r.n. 4. Diflucan 150 mg p.o. daily. 5. Septra DS 1 each p.o. b.i.d. 6. Fentanyl patch 25 mcg patch TD q.72 hours. FOLLOWUP: 1. The patient is being discharged home with home health. 2. He is to follow up with Dr. Krishnamurthy to resume his chemotherapy. 3. He can continue to follow up with Dr. Rocha if he wishes. 4. The patient can return to the ED for any worsening of symptoms. DISCHARGE TIME: 30 minutes. Dictated by MARYCARMEN Yee for Ralph Corbett MD
== END 2016-07-02 15:43 | disposition home health service (06) | DRG 378 ==
LOC: ED 21:50 → 3N 06-27 01:14
PROVIDERS: ATTEND Internal Medicine
PROC: 3E0336Z Introduction of Nutritional Substance into Peripheral Vein, Percutaneous Approach (ICD-10-PCS; 2016-06-27)
PROC: 30233N1 Transfusion of Nonautologous Red Blood Cells into Peripheral Vein, Percutaneous Approach (ICD-10-PCS; principal; 2016-06-28)
PROC: 30233R1 Transfusion of Nonautologous Platelets into Peripheral Vein, Percutaneous Approach (ICD-10-PCS; 2016-06-28)
PROC: 30233K1 Transfusion of Nonautologous Frozen Plasma into Peripheral Vein, Percutaneous Approach (ICD-10-PCS; 2016-06-28)
DX: K92.1 Melena (principal); C25.9 Malignant neoplasm of pancreas, unspecified; R64 Cachexia; D61.818 Other pancytopenia; C78.7 Secondary malignant neoplasm of liver and intrahepatic bile duct; R78.81 Bacteremia; F17.210 Nicotine dependence, cigarettes, uncomplicated; K12.30 Oral mucositis (ulcerative), unspecified; Z66 Do not resuscitate; Z80.8 Family history of malignant neoplasm of other organs or systems; Z79.899 Other long term (current) drug therapy; Z79.891 Long term (current) use of opiate analgesic; Z68.25 Body mass index [BMI] 25.0-25.9, adult
CPT/HCPCS: 80048; 80053; 80202; 83605; 85025; 85610; 85730; 86850; 86900; 86901; 86920; 87040; 87077; 87186; 96374; C9113; J1170; J1450; J3370; J3430; J7030; J7040; J7050; J7120; P9016; P9017; P9035; S0164

== ENCOUNTER 2016-07-13 13:59 | Day surgery (SDC) ==
[~2016-07-13 13:59] MED LIST: HEPARIN ONE; KEFZOL 1 GM/D5W 50 ML ONE; LR 1,000 ML ONE; MARCAINE 0.25% PF/EPI 1:200,000 ONE; NS 250 ML ONE
[2016-07-13 14:18] LABS: BASO% 0.1 % (0.0-0.8); EOS# 0.01 X1000 (0.0-0.7); EOS% 0.1 % (0.0-10.0); HEMATOCRIT 28.5 % (42.0-52.0); HEMOGLOBIN 9.8 g/dL (14.0-18.0); IMM GRAN# 0.08 X1000 (0.0-0.04); IMM GRAN% 0.5 % (0.0-0.5); LYMPH# 2.33 X1000 (1.2-3.4); LYMPH% 15.6 % (20.5-51.1); MANUAL DIFF NEEDED? YES; MCH 32.6 PG (27-31); MCHC 34.4 g/dL (33-37); MCV 94.7 FL (81-99); MONO# 1.56 X1000 (0.11-0.59); MONO% 10.4 % (1.7-9.3); NEUT% 73.3 % (42.2-75.2); PLT 42 X1000 (130-400); RBC 3.01 XMIL (4.7-6.1)
[2016-07-13 14:35] LABS: INR 3.19; PROTIME 36.1 Seconds (9.2-11.7); PTT 62.6 Seconds (22.0-36.0)
[2016-07-13 14:45] LABS: LYMPHS 5 % (21-51); MONO 2 % (1-9); TARGET CELLS 1+
[2016-07-13] MEDS ORDERED: XYLOCAINE 1%/EPI 1:100,000 ONE (15:20)
[2016-07-13 15:33] LABS: AGAP 14; ALBUMIN 1.7 g/dL (3.5-5.0); ALKALINE PHOSPHATASE 238 U/L (32-122); BUN 24 mg/dL (8-22); CHLORIDE 96 mmol/L (98-107); COSMO 270; GOT 888 U/L (10-34); GPT 305 U/L (10-44); POTASSIUM 4.4 mmol/L (3.5-5.1); SODIUM 132 mmol/L (136-145); TCO2 22 mmol/L (25-35); TOTAL BILIRUBIN 6.03 mg/dL (0.20-1.00); TOTAL PROTEIN 7.5 g/dL (6.3-8.3)
[2016-07-13] MEDS ORDERED: DIPRIVAN 1% ONE (16:14)
[2016-07-13] MEDS ORDERED: KETAMINE (DOSE) ONE (16:14)
--- NOTE | 2016-07-13 16:44 | Diag Imaging Result Document ---
PROCEDURE NAME: CHEST-PORTABLE - 07/13/2016 FINDINGS: There is a small left pleural effusion. There is less pleural fluid on the right than on 06/23/2016. There is a Port-A-Cath on the right, which was not previously present. The tip of the catheter is in the superior vena cava just above the right atrium. There is no evidence of pneumothorax. There is some residual atelectasis in the right base. IMPRESSION: Right Port-A-Cath in good position. Improved right pleural effusion.
[2016-07-13] MEDS ORDERED: AMIDATE ONE (17:02)
[2016-07-13] MEDS ORDERED: XYLOCAINE-MPF 2% ONE (17:02)
[2016-07-13 17:41] VITALS: BP 116/73
--- NOTE | 2016-07-13 18:16 | OPERATIVE NOTE ---
PROCEDURE DATE: 07/13/2016 PREOPERATIVE DIAGNOSIS: Metastatic pancreatic cancer. POSTOPERATIVE DIAGNOSIS: Metastatic pancreatic cancer. PROCEDURE: Insertion of [id number] with fluoroscopy and ultrasound guidance. SURGEON: Dr. Delmer Dougherty. ANESTHESIA: Local MAC. ESTIMATED BLOOD LOSS: 30 mL. COMPLICATIONS: None apparent. SPECIMENS: None. FINDINGS: The right internal jugular vein was visualized with the [facility] ultrasound. It was compressible and patent. No thrombus was identified. The wire and subsequently the catheter were confirmed to be in the right atrium and positioned to the superior vena cava-right atrial junction under fluoroscopy. TECHNIQUE: He was brought to the operating room and placed supine on the table. IV sedation was induced. He was prepped and draped in usual sterile fashion. Lidocaine 1% was used to anesthetize the skin below the right clavicle where an incision was made with a knife. This was carried down sharply with scissors to the prepectoral fascia. A pocket was created anterior to the fascia with scissors and blunt finger dissection. He was placed in Trendelenburg. The right internal jugular vein was found with ultrasound. The skin over the vein was anesthetized with Xylocaine. Incision was made in the skin. The vein was accessed under ultrasound guidance, the wire passed through the needle into the vein and was confirmed to be in the right atrium with fluoroscopy. The wire was fixed to the drape. The subcutaneous tissue was infiltrated with Xylocaine between the 2 incisions and the catheter was tunneled subcutaneously from the lower incision out through the neck incision. The dilator and sheath were passed over the wire. The wire and dilator were removed. The catheter was passed into the sheath. The sheath was removed. The tip of the catheter was positioned to the correct junction under fluoroscopy. The catheter was cut to size and fixed to the port. The port was anchored to the fascia with 2-0 Surgipro at 2 o'clock, 6 o'clock, and 10 o'clock. The port was accessed and tameka back blood easily and was flushed with heparin saline. The skin incisions were closed with interrupted subcutaneous 3-0 Polysorb and a running 4-0 subcuticular Monocryl and Steri-Strips. There were no apparent complications. He was awakened in stable condition and transferred to the recovery room where a chest x-ray was ordered.
== END 2016-07-13 17:43 | disposition home or self-care (01) ==
LOC: OR 13:59
PROVIDERS: ATTEND Surgery
DX: C25.9 Malignant neoplasm of pancreas, unspecified (principal); C78.7 Secondary malignant neoplasm of liver and intrahepatic bile duct; K21.9 Gastro-esophageal reflux disease without esophagitis; Z87.11 Personal history of peptic ulcer disease; F32.9 Major depressive disorder, single episode, unspecified; F17.210 Nicotine dependence, cigarettes, uncomplicated; Z79.899 Other long term (current) drug therapy
CPT/HCPCS: 71010; 77001; 80053; 85025; 85610; 85730; C1788; J0690; J7050; J7120